=== PATIENT | male | born 1995 | race Caucasian/White ===

== ENCOUNTER 2021-01-29 15:14 | Emergency (ER) | payer BC, SELFPAY ==
[2021-01-29] VITALS (7 sets, daily range): BP systolic 116–173; BP diastolic 66–93; PULSE 70–107; RESP 16–19; TEMP 36.8; O2SAT 95–100; BMI 31.1
--- NOTE | 2021-01-29 15:07 | ECG_ITS ---
APPROVED REPORT Exam: Resting ECG HR:100 bpm ECG Measurements Heart Rate [address] 126 P 42 QRSd 100 QRS 65 QT 370 T 50 QTc 477 Conclusion Normal sinus rhythm Normal ECG Electronically signed by : Juan Wyatt MD 02/01/2021 08:48:43
--- NOTE | 2021-01-29 15:25 | XR_ITS ---
PROCEDURE: XR CHEST PORTABLE CLINICAL HISTORY: Chest pain COMPARISON: No exams were available for comparison FINDINGS: The cardiomediastinal silhouette and pulmonary vascularity are within normal limits. The lungs are clear without infiltrates, suspicious nodules, or pleural effusions. No acute bony abnormalities. IMPRESSION: No acute findings. Dictated by: Lorenzo Nair MD 01/29/2021 15:52 Lorenzo Nair MD in [place] 01/29/2021 15:52
[2021-01-29 15:36] LABS: Basophils # 0.1 K/mm3 (0-0.2); Basophils % 1.4 % (0.1-2.0); Eosinophils # 0.1 K/mm3 (0.0-0.4); Hematocrit 42.3 % (42.0-52.0); Hemoglobin 15.4 g/dL (14.1-18.0); Lymphocytes # 2.3 K/mm3 (0.7-4.5); Lymphocytes % 25.9 % (10-50); Mean Corpuscular HGB Conc 36.4 g/dL (31.8-35.4); Mean Corpuscular Hemoglobin 30.1 pg (27.0-31.2); Mean Corpuscular Volume 82.8 fl (80-94); Mean Platelet Volume 10.3 fl (7.4-10.4); Monocytes # 0.4 K/mm3 (0.1-1.0); Monocytes % 4.2 % (1.7-9.3); Neutrophils # 5.9 K/mm3 (1.8-7.8); Neutrophils % 67.5 % (37.0-80.0); Platelet Count 224 K/mm3 (142-424); Red Blood Count 5.11 M/mm3 (4.60-6.20); Red Cell Distribution Width 12.6 % (11.5-17.5); White Blood Count 8.7 K/mm3 (4.8-10.8)
--- NOTE | 2021-01-29 16:10 | PC.NURSE ---
PT up to bathroom and advises he is feeling much better.
[2021-01-29 16:19] LABS: Lactic Acid 2.2 mmol/L (0.7-2.1)
--- NOTE | 2021-01-29 16:32 | [facility].EDANX ---
ED Disposition Clinical Impression: Acute anxiety Disposition: Home, Self-Care Condition on Discharge: Fair Additional Instructions: Please follow up with your primary care physician. The primary care physician might want to start him on propranolol. Referrals: Merced Clemente MD [Primary Care Provider] - - Critical Care Critical Care Time: No Attestation: On 01/29/21, the high probability of a clinically significant, sudden or life threatening deterioration of the following system(s) required my full and direct attention, intervention and personal management. The time I documented below is in addition to time spent performing reported procedures but includes the following listed in this critical care notation. Medical Decision Making - Medical Records Medical records reviewed: Yes: I reviewed the patient's medical records. - Gt Inquiry Pt receiving controlled substance: No Gt was queried for this patient: No Vital Signs: 01/29/21 15:14 01/29/21 15:48 01/29/21 16:01 Temperature 98.3 F Temperature Source Oral Pulse Rate 86 85 Pulse Rate [Right] 73 Respiratory Rate 16 Blood Pressure 126/66 116/81 Blood Pressure [Right Arm] 143/89 H Blood Pressure Mean 94 94 Blood Pressure Mean [Right Arm] 107 Blood Pressure Source Blood Pressure Source [Right Arm] Automatic Cuff Blood Pressure Position Blood Pressure Position [Right Arm] Sitting 02 Sat by Pulse Oximetry 100 96 95 Oxygen Delivery Method Room Air 01/29/21 16:11 Temperature Temperature Source Pulse Rate 70 Pulse Rate [Right] Respiratory Rate 16 Blood Pressure 116/81 Blood Pressure [Right Arm] Blood Pressure Mean Blood Pressure Mean [Right Arm] Blood Pressure Source Automatic Cuff Blood Pressure Source [Right Arm] Blood Pressure Position Sitting Blood Pressure Position [Right Arm] 02 Sat by Pulse Oximetry 100 Oxygen Delivery Method Room Air - Lab Data Lab results reviewed: Yes: I reviewed the patient's lab results. Lab Results 01/29/21 15:10: WBC 8.7, RBC 5.11, Hgb 15.4, Hct 42.3, MCV 82.8, MCH 30.1, MCHC 36.4 H, RDW 12.6, Plt Count 224, MPV 10.3, Neut % (Auto) 67.5, Lymph % (Auto) 25.9, [place] % (Auto) 4.2, Eos % (Auto) 1.0, Baso % (Auto) 1.4, Neut # (Auto) 5.9, Lymph # (Auto) 2.3, [place] # (Auto) 0.4, Eos # (Auto) 0.1, Baso # (Auto) 0.1 01/29/21 15:10: Sodium 136, Potassium 3.3 L, Chloride 103, Carbon Dioxide 25, Anion Gap 11.3, BUN 19, Creatinine 1.00, Estimated Creat Clear 168, Estimated GFR 92, Est GFR ( Amer) 111, Glucose 125 H, Calcium 10.0, Total Bilirubin 0.9, AST 45, ALT 41, Alkaline Phosphatase 74, Troponin I < 0.01, Total Protein 7.9, Albumin 4.8, Globulin 3.1, Albumin/Globulin Ratio 1.5 01/29/21 15:10: Lactate 2.2 H Result diagrams: 01/29/21 15:10 01/29/21 15:10 Orders (Tests/Meds): ED MEDICATIONS Discontinued Medications Generic Name Dose Route Start Last Admin Trade Name Freq PRN Reason Stop Dose Admin Hydroxyzine Pamoate 25 mg 01/29/21 15:26 01/29/21 15:30 Hydroxyzine Pamoate 25mg Capsule PO 01/29/21 15:27 25 mg ONCE ONE Administration ORDERS Category Date Time Status Troponin I Q3H Lab 01/29/21 18:30 Ordered Troponin I Q3H Lab 01/29/21 21:30 Ordered Medical Decision Narrative: Is a 25-year-old male with past medical history of anxiety presenting to the ED with chest pain. Patient is awake, alert, not in acute distress. Patient is hemodynamically stable, afebrile. Patient's physical exam is unremarkable. Differential includes but is not limited to panic attack, anxiety attack, very low concern for a cardiac nature of this pain such as ACS, PE. Given this a CBC, CMP, EKG, troponin, chest x-ray is performed. Lab work was unremarkable, initial troponin was negative, chest x-ray without any acute cardiopulmonary process. Patient EKG shows a normal sinus rhythm without any ST elevations or depressions. Patient was given Vistaril which helped
[2021-01-29 16:39] LABS: Alanine Aminotransferase 41 U/L (12-78); Albumin Level 4.8 g/dl (3.5-5.0); Albumin/Globulin Ratio 1.5 (1.1-1.8); Alkaline Phosphatase 74 U/L (38-126); Anion Gap 11.3 mEq/L (5-15); Aspartate Amino Transferase 45 U/L (17-59); Bilirubin,Total 0.9 mg/dl (0.2-1.3); Blood Urea Nitrogen 19 mg/dl (9-20); Carbon Dioxide 25 mmol/L (22.0-30.0); Chloride 103 mmol/L (98-107); Creatinine Clearance Estimated 168 mL/min (50-200); Estimated Glomerular Filt Rate 92 ml/min (>60); GFR (African American) 111 ML/MIN (>60); Globulin 3.1 g/dL (1.3-3.2); Glucose 125 mg/dl (74-100); Potassium 3.3 mmoL/L (3.5-5.1); Sodium 136 mmol/L (136-145); Total Protein,Serum 7.9 g/dl (6.3-8.2)
[2021-01-29 16:52] LABS: Troponin I < 0.01 ng/ml (0.00-0.034)
--- NOTE | 2021-01-29 17:00 | ECG_ITS ---
APPROVED REPORT Exam: Resting ECG HR:97 bpm ECG Measurements Heart Rate 97 AXES MN 120 P 33 QRSd 100 QRS 53 QT 348 T 44 QTc 441 Conclusion Normal sinus rhythm Normal ECG Electronically signed by : Juan Wyatt MD 02/01/2021 08:48:29
== END 2021-01-29 17:18 | disposition home or self-care (01) ==
PROVIDERS: Emergency Provider Emergency Medicine; PCP Family Medicine
DX: F41.9 Anxiety disorder, unspecified (principal); R07.89 Other chest pain
CPT/HCPCS: 71045; 80053; 83605; 84484; 85025; 93005; 99283